=== PATIENT | female | born 1950 | race Caucasian/White ===

== ENCOUNTER 2019-05-11 11:27 | Emergency (ER) | payer OTHER, MEDICARE ==
[~2019-05-11] VITALS: Ht 170.2 cm; Wt 90.7 kg
[2019-05-11 11:28] VITALS: BP 139/79
[2019-05-11] MEDS ORDERED: PROZAC10 M1 PO (11:31)
[2019-05-11] MEDS ORDERED: BYSTOLIC 5 MG5 MG PO (11:31)
[2019-05-11] MEDS ORDERED: WARFARIN SODIUM10 MG PO (11:31)
[2019-05-11] MEDS ORDERED: COZAAR 25 MG TA25 M2 PO (11:31)
[2019-05-11] MEDS ORDERED: VITAMIN D32000 UNIT PO (11:32)
[2019-05-11] MEDS ORDERED: PRILOSEC OTC20 MG PO (11:32)
[2019-05-11] MEDS ORDERED: VITAMIN B-121000 MC2 SUBLING (11:32)
[2019-05-11] MEDS ORDERED: PREDNISONE 20 M20 MG PO (12:32)
[2019-05-11] MEDS ORDERED: NORCO 5-325 TA1 EAC1 PO (12:32)
[2019-05-11] MEDS ORDERED: LIDODERM1 EACH TOP (12:32)
[2019-05-11] MEDS ORDERED: NORFLEX100 MG PO (12:32)
== END 2019-05-11 12:50 | disposition home or self-care (01) ==
LOC: ER 11:27
DX: S39.012A Strain of muscle, fascia and tendon of lower back, initial encounter (principal); M54.16 Radiculopathy, lumbar region; I10 Essential (primary) hypertension; Z88.0 Allergy status to penicillin; Y08.89XA Assault by other specified means, initial encounter; Y93.89 Activity, other specified; Y92.89 Other specified places as the place of occurrence of the external cause; Y99.8 Other external cause status